=== PATIENT | male | born 1980 | race Caucasian/White ===

== ENCOUNTER → 2019-09-29 07:13 | Outpatient (CLI) | payer OTHER, SELFPAY | PROVIDERS: PCP Student in an Organized Health Care Education/Training Program | DX: Z79.899 Other long term (current) drug therapy (principal) | CPT/HCPCS: 36415 ==

== ENCOUNTER 2021-11-12 06:47 | Emergency (ER) | payer OTHER, SELFPAY ==
[2021-11-12 06:48] VITALS: BP 136/70; PULSE 76; RESP 16; TEMP 37.1; O2SAT 98; BMI 23.7
[2021-11-12 06:53] VITALS: BP 136/70; PULSE 76; RESP 18; TEMP 37.1; O2SAT 96
--- NOTE | 2021-11-12 07:04 | EKG12_ITS ---
Test Reason : Blood Pressure : / mmHG Vent. Rate : 076 BPM Atrial Rate : 076 BPM P-R Int : 126 ms QRS Dur : 102 ms QT Int : 350 ms P-R-T Axes : 060 073 -28 degrees QTc Int : 393 ms Normal sinus rhythm Nonspecific T wave abnormality Abnormal ECG Confirmed by CALIXTO WEBBER, ANDREA ([id number]), supervising editor news reel JULIUS GRIDER ([id number]) on 11/14/2021 8:13:05 AM Referred By: Confirmed By:ANDREA DE LUNA MD
--- NOTE | 2021-11-12 07:08 | EX.ED.DYSGE1 ---
HPI History of Present Illness Chief Complaint: General Illness Narrative Narrative: This is a 41-year-old male presenting with right upper back pain. He states he developed a fever last night which was improving with Tylenol and ibuprofen however the fever keeps returning. He states that the pain is sharp and does not radiate. He denies cough, shortness of breath. He does have chills and body aches. He states that he has had some nausea but has not vomited. He had a couple episodes of diarrhea without black or bloody stools. Denies any urinary complaints. He does not express to me that he is having any abdominal pain. Patient has a history of Fabry's disease. He sees a service parts coordinator at [facility] for this. He takes a medicine called Vipin for this. He states he also has a history of non-Hodgkin's lymphoma which has been in remission for about [address] Glynn for this. PFSH PFSH Home Medications bupropion HCl 300 mg 24 hr tablet, extended release (Wellbutrin XL) mg PO 11/12/21 [History Last Taken Unknown] carbamazepine 200 mg tablet 1 tab BID 11/12/21 [History Last Taken Unknown] dextroamphetamine-amphetamine 10 mg tablet (Adderall) 10 mg PO DAILY 11/12/21 [History Last Taken Unknown] gabapentin 300 mg tablet 300 mg PO BID 11/12/21 [History Last Taken Unknown] hydrocodone-acetaminophen 5-325mg 5mg-325mg 1 tab PO Q6H PRN pain 3 days #10 tabs 11/12/21 [Rx Last Taken Unknown] migalastat 123 mg capsule (Galafold) 1 cap PO QODAY 11/12/21 [History Last Taken Unknown] ondansetron 4 mg disintegrating tablet 4 mg PO Q8H PRN nausea and vomiting #10 tabs 11/12/21 [Rx Last Taken Unknown] rosuvastatin 10 mg tablet (Crestor) 10 mg PO DAILY 11/12/21 [History Last Taken Unknown] Allergy/AdvReac Type Severity Reaction Status Date / Time No Known Allergies Allergy Verified 11/12/21 06:53 Social History Smoking Status: Never smoker ROS ROS ED Constitutional Constitutional ED: Reports chills and fever(s); Denies sweats Eyes Eyes: Denies change in vision ENT ENT ED: Denies rhinorrhea or sore throat Cardiovascular Cardiovascular: Reports other Details: Right posterior rib pain ; Denies chest pain or palpitations Respiratory/Chest Respiratory/Chest: Denies cough, dyspnea or dyspnea on exertion Gastrointestinal Gastrointestinal: Reports diarrhea and nausea; Denies abdominal pain Genitourinary Genitourinary ED: Denies dysuria or hematuria Musculoskeletal Musculoskeletal: Reports other Details: Right posterior flank pain ; Denies arthralgias Integumentary Denies abscess or Abrasions Neurologic Neurologic: Reports headache(s); Denies paresthesias Psychiatric Psychiatric: Denies anxiety or depression EXAM Physical Exam Const Vital Signs: 11/12/21 06:48 11/12/21 07:29 11/12/21 06:53 Temperature 98.8 F 98.8 F Temperature Source Temporal Temporal Pulse Rate 76 76 Respiratory Rate 16 18 Respiratory Effort Normal Non-Labored Respiratory Pattern Normal Blood Pressure 136/70 H 136/70 H Blood Pressure Mean 92 92 Pulse Ox 98 96 Oxygen Delivery Method Room Air Positive well nourished General Appearance ED: NAD; Negative for pallor HEENT Reports moist mucous membranes Eyes PERRL and EOMs intact bilaterally General Eye ED: Negative for pale conjunctiva or scleral icterus Neck no lymphadenopathy Chest Wall Chest Narrative: Tenderness to palpation over the right posterior ribs. No crepitance, deformity, bruising. Equal symmetric breath sounds and chest wall rise. Resp normal respiratory effort and clear to auscultation bilaterally Cardio regular rate and regular rhythm GI normal to inspection, nondistended, normoactive bowel sounds, non-tender and non-distended Back/Spine General Back: CVA tenderness right Cervical Spine: Negative for cervical spine tenderness Thoracic Spine / Upper Back: Negative for thoracic spinal tenderness Lumbar Spine / Lower Back: Negative for lumbar spinal tenderness Extremity normal to inspection Neuro oriented x3 and CN's II-XII intact bilaterally Sensorium / Orientation: alert Motor Exam: strength 5/5 throughout Psych mental status grossly normal Skin no wounds General Skin Exam: Negative for jaundice or pallor MDM MDM MDM Narrative Medical decision making narrative: Patient presenting with fever, nausea, diarrhea and right-sided flank pain. He has also had fever. On examination he does appear to have CVA tenderness however the pain also appears to be in his lower ribs. No obvious findings on exam and his lungs are clear to auscultation. Blood work is obtained and the patient does not have a leukocytosis. Hemoglobin is stable. Patient noted to be lymphopenic. Renal function and electrolytes normal. LFTs within normal limits. Lipase is negative. EKG was performed and on my interpretation this is a normal sinus rhythm with a ventricular rate of 76 bpm with T wave inversions noted in leads II, 3, aVF, V5, V6. There is no ST elevations. No comparison EKG. The patient did have 2 high-sensitivity troponins drawn and they are both 14. There is no significant interval change. Chest x-ray on my interpretation shows no acute cardiopulmonary process and the radiologist does agree. The patient did have an elevated D-dimer and a CTA of his chest was negative for PE or dissection. There is also no infiltrate noted. Patient had a small amount of occult blood in his urine and CT of the abdomen pelvis without contrast notes no kidney stones or other acute pathology. Patient's rapid influenza was negative. PCR testing was negative for COVID. At this point I think from a cardiac standpoint the patient is stable to be discharged home. He is not have any respiratory complaints and I did not find anything on his chest x-ray or CTA. He still continues to have flank pain. He request something for pain for home and he is given a short supply of [place] and some Zofran. I suspect he has something viral and has had a very thorough work-up. He is amenable to discharge home and will follow up with his PCP to ensure resolution. Impression: 1. Viral syndrome 2. Atypical chest pain 3. Right flank pain 4. Febrile illness Lab Data Labs: Laboratory Results - last 24 hr 11/12/21 11/12/21 11/12/21 06:55 06:55 06:55 WBC 9.2 RBC 4.61 Hgb 14.1 Hct 41.0 MCV 88.9 MCH 30.6 MCHC 34.4 RDW Std Deviation 40.8 RDW Coeff of Kian 12.5 Plt Count 175 MPV 10.5 Immature Gran % (Auto) 0.300 Neut % (Auto) 86.1 H Lymph % (Auto) 4.4 L [place] % (Auto) 8.9 Eos % (Auto) 0.1 Baso % (Auto) 0.2 Absolute Neuts (auto) 7.9 H Absolute Lymphs (auto) 0.40 L Nucleated RBC % 0 D-Dimer Quant (PE/DVT) 0.69 H* Sodium 136 Potassium 4.4 Chloride 105 Carbon Dioxide 23.0 Anion Gap 8 BUN 19 H Creatinine 1.09 Estim Creat Clear Calc 99.77 Est GFR (MDRD) Af Amer 95 Est GFR (MDRD) Non-Af 79 BUN/Creatinine Ratio 17.4 Glucose 107 H Calcium 8.6 Total Bilirubin 0.40 AST 29 ALT 34 Alkaline Phosphatase 82 Troponin I High Sens 14 Total Protein 7.3 Albumin 3.8 Globulin 3.5 Albumin/Globulin Ratio 1.1 Lipase 63 L Urine Color Urine Clarity Urine pH Ur Specific [place] Urine Protein Urine Glucose (UA) Urine Ketones Urine Occult Blood Urine Nitrite Urine Bilirubin Urine Urobilinogen Ur Leukocyte Esterase Urine RBC Urine WBC Ur Squamous Epith Cells Urine Bacteria Urine Mucus COVID-19 ([facility]) 11/12/21 11/12/21 11/12/21 07:11 08:00 09:40 WBC RBC Hgb Hct MCV MCH MCHC RDW Std Deviation RDW Coeff of Kian Plt Count MPV Immature Gran % (Auto) Neut % (Auto) Lymph % (Auto) [place] % (Auto) Eos % (Auto) Baso % (Auto) Absolute Neuts (auto) Absolute Lymphs (auto) Nucleated RBC % D-Dimer Quant (PE/DVT) Sodium Potassium Chloride Carbon Dioxide Anion Gap BUN Creatinine Estim Creat Clear Calc Est GFR (MDRD) Af Amer Est GFR (MDRD) Non-Af BUN/Creatinine Ratio Glucose Calcium Total Bilirubin AST ALT Alkaline Phosphatase Troponin I High Sens 14 Total Protein Albumin Globulin Albumin/Globulin Ratio Lipase Urine Color Yellow Urine Clarity Clear Urine pH 5.0 Ur Specific [place] 1.015 Urine Protein 15 H Urine Glucose (UA) Normal Urine Ketones Negative Urine Occult Blood 10 H Urine Nitrite Negative Urine Bilirubin Negative Urine Urobilinogen Normal Ur Leukocyte Esterase Negative Urine RBC 0 SEEN Urine WBC 0 SEEN Ur Squamous Epith Cells 0 SEEN Urine Bacteria 0 SEEN Urine Mucus 0 SEEN COVID-19 ([facility]) Not Detected Radiography Diagnostic Testing: Clinical Impression(s) from Imaging Studies Chest X-Ray 11/12/21 07:42 IMPRESSION: No active disease. Electronically Signed: Tex Schaffer MD at 8:05 EDT , Abdomen/Pelvis CT 11/12/21 08:26 IMPRESSION: Normal unenhanced CT of the abdomen and pelvis. Electronically Signed: Tex Schaffer MD at 9:13 EDT , Chest CTA 11/12/21 08:26 IMPRESSION: Normal CTA chest examination, without a demonstrated pulmonary embolism or arterial dissection. Electronically Signed: Tex Schaffer MD at 9:18 EDT , Discharge Plan Triage Chief Complaint: General Illness Other Complaint: Back ED Provider: Tyshawn Kimble Dx/Rx/DC Orders Instructions: ED Flank Pain, Uncertain Cause, ED Viral Syndrome (Adult) Prescriptions: New hydrocodone-acetaminophen 5-325 mg tablet 1 tab PO Q6H PRN (Reason: pain) 3 Days Qty: 10 0RF ondansetron 4 mg tablet,disintegrating 4 mg PO Q8H PRN (Reason: nausea and vomiting) Qty: 10 0RF No Action dextroamphetamine-amphetamine [Adderall] 10 mg Tablet 10 mg PO DAILY carbamazepine 200 mg tablet 1 tab BID rosuvastatin [Crestor] 10 mg Tablet 10 mg PO DAILY Rx Instructions: unsure of dose bupropion HCl [Wellbutrin XL] 300 mg Tablet Extended Release 24 Hr PO gabapentin 300 mg Tablet 300 mg PO BID [place] 123 mg capsule 1 cap PO QODAY Primary Care Provider: Iggy Cardoza Referrals: Iggy Cardoza DO [Primary Care Provider] - Disposition Disposition: Home, Self Care
[2021-11-12] MEDS: Morphine 4 MG/ML Syringe IV (07:16)
[2021-11-12] MEDS: 0.9% Normal Saline 1,000 ML 1000 ML IV (07:16)
[2021-11-12] MEDS: Ondansetron 4 MG/2 ML Vial IV (07:16)
[2021-11-12 07:35] LABS: Absolute Neutrophil Count 7.9 X10^3/uL (2.0-7.7); Basophil# 0.02 X10^3/uL; Basophil% 0.2 % (0-1); Eosinophil# 0.01 X10^3/uL; Eosinophils% 0.1 % (0-5); Hemoglobin 14.1 g/dL (13.0-16.5); Lymphocyte % 4.4 % (19-41); Mean Corp Hgb Conc 34.4 g/dL (32-36); Mean Corpuscular Hgb 30.6 pg (27.0-32.0); Mean Corpuscular Volume 88.9 fL (80-94); Mean Platelet Vol. 10.5 fl (6.2-12.0); Monocyte# 0.82 X10^3/uL; Monocyte% 8.9 % (0-10); NRBC Flagged by Analyzer 0 % (0-5); Neutrophil # 7.89 X10^3/uL (2.7-7.7); Neutrophil % 86.1 % (47-70); POSITIVE DIFFERENTIAL YES; Platelet Count 175 K/mm3 (150-450); RBC Distribution Width CV 12.5 % (11.6-14.6); RBC Distribution Width SD 40.8 fl (35.1-43.9); Red Blood Count 4.61 M/mm3 (4.6-6.2); White Blood Count 9.2 K/mm3 (4.4-11.0)
[2021-11-12 07:39] LABS: Differential Indicated SCAN CRITERIA MET
--- NOTE | 2021-11-12 07:42 | RAD_ITS ---
STUDY: X-RAY CHEST REASON FOR EXAM: Male, 41 years old. chest pain TECHNIQUE: Single AP portable view of the chest. COMPARISON: None. FINDINGS: Left subclavian chest port. The lungs are clear and expanded. There is no demonstrated pleural abnormality. Normal size heart. Normal mediastinum and heather. Normal visualized pulmonary arteries. Normal visualized aortic arch and descending thoracic aorta. Normal visualized thoracic spine. Normal visualized ribs, clavicles, and shoulders. There is no demonstrated abnormality of the visualized soft tissue structures of the upper abdomen. RAD/Chest 1 View (Portable) IMPRESSION: No active disease. Electronically Signed: Tex Schaffer MD at 8:05 EDT ,
[2021-11-12 07:54] LABS: ALB/GLOB Ratio 1.1 RATIO (0.9-2.4); AST(SGOT) 29 U/L (15-37); Alanine Aminotransfer ALT/SGPT 34 U/L (16-61); Albumin, Serum 3.8 g/dL (3.2-5.0); Alkaline Phosphatase 82 U/L (45-117); Anion Gap 8 (5-15); BUN 19 mg/dL (7-18); BUN/Creat Ratio 17.4 RATIO (10-20); Calcium,Total 8.6 mg/dL (8.5-10.1); Chloride 105 mmol/L (98-107); Creatinine, Serum 1.09 mg/dL (0.70-1.30); EST Glomerular Filtration Rate 79 mL/min (>60); Est Glom Filt Rate - Afr Amer 95 mL/min (>60); Estimated Creatinine Clearance 99.77 ml/min; Globulin 3.5 g/dL (2.2-4.2); Glucose 107 mg/dL (74-106); Lipase 63 U/L (73-393); Potassium 4.4 mmol/L (3.5-5.1); Protein, Total 7.3 g/dL (6.4-8.2); Sodium Level 136 mmol/L (136-145); Troponin-I HS 14 pg/mL (3.0-78.0)
[2021-11-12 08:07] LABS: D-Dimer Quantitative (DVT/PE) 0.69 FEU/ug/m (0.27-0.49)
[2021-11-12 08:08] LABS: Bacteria 0 SEEN /hpf (None Seen); Mucous, Urine 0 SEEN /hpf (<or=2+); Red Blood Cells-Urine 0 SEEN /hpf (0-5); Squamous Epithelial Cells - UA 0 SEEN /hpf (0-5); White Blood Cells 0 SEEN /hpf (0-5)
[2021-11-12 08:12] LABS: Color, Urine Yellow (Yellow); Glucose, Dipstick Normal (Normal); Ketone-Dipstick Negative (Negative); Leukocyte Esterase-Dipstick Negative /ul (Negative); Nitrite-Dipstick Negative (Negative); Occult Blood-Urine 10 /ul (Negative); Protein-Dipstick 15 mg/dl (Negative); Specific Gravity, Urine 1.015 (1.002-1.030); Urine Bilirubin Dipstick Negative (Negative); Urine Clarity Clear (Clear); Urine Urobilinogen Normal (Normal)
--- NOTE | 2021-11-12 08:26 | CT_ITS ---
STUDY: CT ABDOMEN AND PELVIS WITHOUT CONTRAST REASON FOR EXAM: Male, 41 years old. Left flank pain RADIATION DOSAGE (If Supplied By Facility): CTDIvol = ( 9.99 ) mGy, DLP = ( 618.05 ) mGycm TECHNIQUE: Transaxial images were obtained from the dome of the diaphragm to the symphysis pubis without oral contrast, and without intravenous contrast. Sagittal and coronal images were reconstructed. Individualized dose optimization techniques were used for this CT. COMPARISON: None. FINDINGS: The visualized lung bases are unremarkable. The visualized portions of the heart are within normal limits. Normal liver. Normal gallbladder and extrahepatic biliary system. Normal spleen. Normal pancreas. Normal bilateral adrenal glands. Normal right kidney. Normal left kidney. Normal visualized stomach. Normal small intestine. Normal colon. There is non-visualization of the appendix. Normal abdominal aorta. Normal inferior vena cava. Normal retroperitoneum. Normal urinary bladder. Normal abdominal wall. Normal osseous structures. CT/Abdomen/Pelvis without Cont IMPRESSION: Normal unenhanced CT of the abdomen and pelvis. Electronically Signed: Tex Schaffer MD at 9:13 EDT ,
--- NOTE | 2021-11-12 08:26 | CT_ITS ---
STUDY: CTA CHEST REASON FOR EXAM: Male, 41 years old. rib pain RADIATION DOSAGE (If Supplied By Facility): CTDIvol = ( 9.99 ) mGy, DLP = ( 618.05 ) mGycm TECHNIQUE: The examination was performed with the intravenous administration of IV 100mL [id number]-370. Post-processing of the angiographic images was performed, with multiplanar reformation and 3D reconstruction. Individualized dose optimization techniques were used for this CT. COMPARISON: None. FINDINGS: Normal enhancement of the main pulmonary artery and right and left pulmonary arteries. Normal enhancement of the bilateral peripheral pulmonary arteries. There is no demonstrated pulmonary embolism. Normal thoracic aorta and visualized great vessels. There is no demonstrated aortic dissection. Normal heart and pericardium. Normal mediastinum. Normal hilar regions. Normal visualized trachea and bronchi. The lungs are well expanded. Normal pulmonary parenchyma. Normal pleura. Normal chest wall structures. Normal osseous structures. Normal visualized upper abdomen. CT/CTA Chest W/WO Contrast IMPRESSION: Normal CTA chest examination, without a demonstrated pulmonary embolism or arterial dissection. Electronically Signed: Tex Schaffer MD at 9:18 EDT ,
[2021-11-12 10:02] LABS: Troponin-I HS 14 pg/mL (3.0-78.0)
[2021-11-12 11:15] VITALS: PULSE 80; RESP 17; O2SAT 98
== END 2021-11-12 11:18 | disposition home or self-care (01) ==
PROVIDERS: Emergency Provider Student in an Organized Health Care Education/Training Program; PCP Student in an Organized Health Care Education/Training Program; Visit Provider Student in an Organized Health Care Education/Training Program
DX: B34.9 Viral infection, unspecified (principal); R07.89 Other chest pain; R10.9 Unspecified abdominal pain; R50.9 Fever, unspecified; Z79.899 Other long term (current) drug therapy
CPT/HCPCS: 71045; 71275; 74176; 80053; 81001; 83690; 84484; 85025; 85379; 87635; 87804; 93005; 96374; 96375; 99283; J7030; Q9967; A4216; J2405; U0003; U0005

== ENCOUNTER 2021-11-14 07:53 | Emergency (ER) | payer OTHER, SELFPAY ==
[2021-11-14 07:54] VITALS: BP 104/63; PULSE 62; RESP 18; TEMP 36.4; O2SAT 98; BMI 23.7
--- NOTE | 2021-11-14 08:21 | EDS_ITS ---
HPI History of Present Illness Chief Complaint: General Illness Informant: patient Narrative Narrative: 41-year-old male presenting with diarrhea. Patient was seen in the ED on Friday with similar complaints but has had persistent fever and diarrhea. He has had nausea with no vomiting. He states he is unsure but may have seen a small amount of blood in his stool. He complains of diffuse abdominal cramping. He has been taking Tylenol and Advil consistently and currently does not have a fever. He denies shortness of breath or cough. He does work on a farm. Denies sick contacts. Home COVID test yesterday was negative. History of appendectomy. Prior similar symptoms: Yes Recent Illness/Hospitalization: No PFSH PFSH Home Medications bupropion HCl 300 mg 24 hr tablet, extended release (Wellbutrin XL) mg PO 11/12/21 [History Last Taken Unknown] carbamazepine 200 mg tablet 1 tab BID 11/12/21 [History Last Taken Unknown] dextroamphetamine-amphetamine 10 mg tablet (Adderall) 10 mg PO DAILY 11/12/21 [History Last Taken Unknown] gabapentin 300 mg tablet 300 mg PO BID 11/12/21 [History Last Taken Unknown] hydrocodone-acetaminophen 5-325mg 5mg-325mg 1 tab PO Q6H PRN pain 3 days #10 tabs 11/12/21 [Rx Last Taken Unknown] migalastat 123 mg capsule (Galafold) 1 cap PO QODAY 11/12/21 [History Last Taken Unknown] ondansetron 4 mg disintegrating tablet 4 mg PO Q8H PRN nausea and vomiting #10 tabs 11/12/21 [Rx Last Taken Unknown] rosuvastatin 10 mg tablet (Crestor) 10 mg PO DAILY 11/12/21 [History Last Taken Unknown] ciprofloxacin HCl 500 mg tablet (Cipro) 500 mg PO BID #14 tabs 11/14/21 [Rx Last Taken Unknown] Allergy/AdvReac Type Severity Reaction Status Date / Time No Known Allergies Allergy Verified 11/14/21 07:56 Social History Smoking Status: Never smoker ROS ROS ED Constitutional Constitutional ED: Reports fever(s) ENT ENT ED: Denies rhinorrhea Cardiovascular Cardiovascular: Denies chest pain Respiratory/Chest Respiratory/Chest: Denies cough or dyspnea Gastrointestinal Gastrointestinal: Reports abdominal pain, diarrhea and nausea; Denies constipation, melena or vomiting Genitourinary Genitourinary ED: Denies dysuria Musculoskeletal Musculoskeletal: Reports myalgias Integumentary Denies rash Neurologic Neurologic: Denies headache(s) Psychiatric Psychiatric: Denies suicidal ideation EXAM Physical Exam Narrative Exam Narrative: Patient is given IV fluids. Const Vital Signs: 11/14/21 07:54 11/14/21 08:42 11/14/21 11:07 Temperature 97.5 F L 98.6 F Temperature Source Temporal Oral Pulse Rate 62 56 L Respiratory Rate 18 16 Respiratory Pattern Normal Blood Pressure 104/63 104/66 Blood Pressure Mean 76 78 Pulse Ox 98 100 Oxygen Delivery Method Room Air Room Air Positive well nourished and well developed General Appearance ED: well developed HEENT Reports dry mucous membranes Mouth ED: Yes dry mucous membranes Mouth: dry mucous membranes Eyes PERRL and EOMs intact bilaterally Neck supple Neck Narrative: No meningismus Resp normal respiratory effort and clear to auscultation bilaterally Cardio regular rate and regular rhythm GI normal to inspection, nondistended, normoactive bowel sounds GI Narrative: Mild epigastric tenderness, no rebound or guarding Palpation: Negative for guarding or rebound tenderness present Back/Spine no CVA tenderness Extremity normal to inspection Neuro oriented x3 Psych mental status grossly normal Skin no rashes or lesions noted MDM MDM MDM Narrative Medical decision making narrative: Patient was given IV fluids. COVID is negative. CBC shows normal white count, normal hemoglobin. Chemistries are unremarkable. Lipase is normal. Urinalysis unremarkable. Stool studies were sent and are pending. Positive fecal white blood cells. 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 He was given prescription for Cipro. He is feeling improved on reevaluation. He is comfortable with discharge home. Advised signs and symptoms for which to return to the ED. Advised to follow-up with primary care physician. Lab Data Attestation: I reviewed the patient's lab results. Labs: Laboratory Results - last 24 hr 11/14/21 11/14/21 11/14/21 08:35 08:35 09:35 WBC 4.4 RBC 4.55 L Hgb 13.8 Hct 39.9 L MCV 87.7 MCH 30.3 MCHC 34.6 RDW Std Deviation 39.8 RDW Coeff of Kian 12.3 Plt Count 175 MPV 10.0 Immature Gran % (Auto) 0.200 Neut % (Auto) 62.6 Lymph % (Auto) 15.6 L [place] % (Auto) 20.4 H Eos % (Auto) 0.7 Baso % (Auto) 0.5 Absolute Neuts (auto) 2.7 Absolute Lymphs (auto) 0.68 L Nucleated RBC % 0 Differential Comment Sodium 139 Potassium 3.6 Chloride 107 Carbon Dioxide 26.0 Anion Gap 6 BUN 8 Creatinine 0.99 Estim Creat Clear Calc 109.85 Est GFR (MDRD) Af Amer 106 Est GFR (MDRD) Non-Af 88 BUN/Creatinine Ratio 8.1 L Glucose 101 Calcium 8.6 Total Bilirubin 0.30 AST 24 ALT 32 Alkaline Phosphatase 64 Total Protein 6.9 Albumin 3.3 Globulin 3.6 Albumin/Globulin Ratio 0.9 Lipase 46 L Urine Color Yellow Urine Clarity Sl. Cloudy Urine pH 6.0 Ur Specific [place] 1.015 Urine Protein 30 H Urine Glucose (UA) Normal Urine Ketones Negative Urine Occult Blood 10 H Urine Nitrite Negative Urine Bilirubin Negative Urine Urobilinogen Normal Ur Leukocyte Esterase 25 H Urine RBC 0 SEEN Urine WBC 0 SEEN Ur Squamous Epith Cells 0 SEEN Urine Bacteria 0 SEEN Urine Mucus 0 SEEN Discharge Plan Triage Chief Complaint: General Illness ED Provider: Leatha Briceno Dx/Rx/DC Orders Clinical Impression: Diarrhea Instructions: ED Diarrhea, Unknown Cause Prescriptions: New ciprofloxacin HCl [Cipro] 500 mg tablet 500 mg PO BID Qty: 14 0RF No Action dextroamphetamine-amphetamine [Adderall] 10 mg Tablet 10 mg PO DAILY carbamazepine 200 mg tablet 1 tab BID rosuvastatin [Crestor] 10 mg Tablet 10 mg PO DAILY Rx Instructions: unsure of dose bupropion HCl [Wellbutrin XL] 300 mg Tablet Extended Release 24 Hr PO gabapentin 300 mg Tablet 300 mg PO BID [place] 123 mg capsule 1 cap PO QODAY hydrocodone-acetaminophen 5-325 mg tablet 1 tab PO Q6H PRN (Reason: pain) 3 Days Qty: 10 0RF ondansetron 4 mg tablet,disintegrating 4 mg PO Q8H PRN (Reason: nausea and vomiting) Qty: 10 0RF Primary Care Provider: Iggy Cardoza Referrals: Iggy Cardoza DO [Primary Care Provider] - Disposition Disposition: Home, Self Care
[2021-11-14] MEDS: 0.9% Normal Saline 1,000 ML 1000 ML IV (08:39)
[2021-11-14 08:45] LABS: Absolute Lymphocyte Count 0.68 X10^3/uL (0.83-4.51); Absolute Neutrophil Count 2.7 X10^3/uL (2.0-7.7); Basophil# 0.02 X10^3/uL; Basophil% 0.5 % (0-1); Eosinophil# 0.03 X10^3/uL; Eosinophils% 0.7 % (0-5); Hematocrit 39.9 % (40-54); Hemoglobin 13.8 g/dL (13.0-16.5); Lymphocyte # 0.68 X10^3/ul (0.83-4.51); Lymphocyte % 15.6 % (19-41); Mean Corp Hgb Conc 34.6 g/dL (32-36); Mean Corpuscular Hgb 30.3 pg (27.0-32.0); Mean Corpuscular Volume 87.7 fL (80-94); Monocyte# 0.89 X10^3/uL; Monocyte% 20.4 % (0-10); NRBC Flagged by Analyzer 0 % (0-5); Neutrophil # 2.73 X10^3/uL (2.7-7.7); Neutrophil % 62.6 % (47-70); POSITIVE MORPHOLOGY YES; Platelet Count 175 K/mm3 (150-450); RBC Distribution Width CV 12.3 % (11.6-14.6); RBC Distribution Width SD 39.8 fl (35.1-43.9); Red Blood Count 4.55 M/mm3 (4.6-6.2); White Blood Count 4.4 K/mm3 (4.4-11.0)
[2021-11-14 08:48] LABS: Differential Indicated SCAN CRITERIA MET
[2021-11-14 09:02] LABS: ALB/GLOB Ratio 0.9 RATIO (0.9-2.4); AST(SGOT) 24 U/L (15-37); Alanine Aminotransfer ALT/SGPT 32 U/L (16-61); Albumin, Serum 3.3 g/dL (3.2-5.0); Alkaline Phosphatase 64 U/L (45-117); Anion Gap 6 (5-15); BUN 8 mg/dL (7-18); BUN/Creat Ratio 8.1 RATIO (10-20); Calcium,Total 8.6 mg/dL (8.5-10.1); Chloride 107 mmol/L (98-107); Creatinine, Serum 0.99 mg/dL (0.70-1.30); EST Glomerular Filtration Rate 88 mL/min (>60); Est Glom Filt Rate - Afr Amer 106 mL/min (>60); Estimated Creatinine Clearance 109.85 ml/min; Globulin 3.6 g/dL (2.2-4.2); Glucose 101 mg/dL (74-106); Lipase 46 U/L (73-393); Potassium 3.6 mmol/L (3.5-5.1); Protein, Total 6.9 g/dL (6.4-8.2); Sodium Level 139 mmol/L (136-145)
[2021-11-14 09:43] LABS: Bacteria 0 SEEN /hpf (None Seen); Mucous, Urine 0 SEEN /hpf (<or=2+); Red Blood Cells-Urine 0 SEEN /hpf (0-5); Squamous Epithelial Cells - UA 0 SEEN /hpf (0-5); White Blood Cells 0 SEEN /hpf (0-5)
[2021-11-14 09:45] LABS: Color, Urine Yellow (Yellow); Glucose, Dipstick Normal (Normal); Ketone-Dipstick Negative (Negative); Leukocyte Esterase-Dipstick 25 /ul (Negative); Nitrite-Dipstick Negative (Negative); Occult Blood-Urine 10 /ul (Negative); Protein-Dipstick 30 mg/dl (Negative); Specific Gravity, Urine 1.015 (1.002-1.030); Urine Bilirubin Dipstick Negative (Negative); Urine Clarity Sl. Cloudy (Clear); Urine Urobilinogen Normal (Normal)
[2021-11-14 11:07] VITALS: BP 104/66; PULSE 56; RESP 16; TEMP 37; O2SAT 100
[2021-11-14 12:21] VITALS: BP 106/66; PULSE 53; RESP 18; O2SAT 99
[2021-11-14] MEDS: Ciprofloxacin 500 MG Tablet PO (12:22)
--- NOTE | 2021-11-14 16:58 | ED.RN ---
THIS RN CONTACTED PT REGARDING POSITIVE STOOL RESULTS. PT VERBALIZES UNDERSTANDING OF CONTINUING TO TAKE CIPRO THAT WAS PRESCRIBED.
[2021-11-15 15:09] LABS: Giardia Lamblia, Stool EIA Negative (Negative)
== END 2021-11-14 12:30 | disposition home or self-care (01) ==
PROVIDERS: Emergency Provider Emergency Medicine; PCP Student in an Organized Health Care Education/Training Program; Visit Provider Emergency Medicine
DX: R19.7 Diarrhea, unspecified (principal)
CPT/HCPCS: 80053; 81001; 83630; 83690; 85025; 87329; 87493; 87506; 87811; 96360; 96361; 99284; J7030

== ENCOUNTER 2025-04-15 13:16 | Emergency (ER) | payer OTHER, SELFPAY ==
[2025-04-15 13:18] VITALS: BP 120/78; PULSE 64; RESP 16; TEMP 36.9; O2SAT 99; BMI 24.9
[2025-04-15 15:14] VITALS: BP 116/72; PULSE 64; RESP 16; TEMP 36.9; O2SAT 99
--- NOTE | 2025-04-15 16:08 | EX.ED.DYSGE1 ---
HPI History of Present Illness Chief Complaint: Fever Narrative Narrative: Pt is a 44-year-old male who is presenting to the ER today with chief complaint of 8 days of myalgia, arthralgia, headaches, fever intermittently. Patient just recently travel to [place] with his and children and came back on Friday. Patient is a huggins. Patient saw PCP this past Friday. Patient had outpatient blood work that all was rather negative, also Lyme disease titers. Patient was started on doxycycline. Patient been having intermittent headaches with some mild photophobia. Patient is having mild neck pain. Patient feels that his neck pain is slightly improving. Patient been taking Advil every 6 hours. Patient has Irene's disease. Patient saw PCP a few days ago. Patient came into the ER because patient and are concerned that he still having fever and flulike symptoms and has never been sick this long before. Patient looks very well. No current headache or neck pain in the ER this morning. chief concern is possible meningitis after doing some research on the Internet. This was discussed as possible etiology, patient signs and symptoms, and all the lab test that patient has already had done with the patient and . Patient is not showing any overt signs or symptoms of any type of viral or bacterial meningitis. Patient and agree. REVIEW OF SYSTEMS: Unless otherwise stated in this report the patient's positive and negative responses for review of systems for constitutional, eyes, ENT, cardiovascular, respiratory, gastrointestinal, neurological, , musculoskeletal, and integument systems and related systems to the presenting problem are either stated in the history of present illness or were not pertinent or were negative for the symptoms and/or complaints related to the presenting medical problem. Nurse's notes and vital signs reviewed. The patient is not hypoxic. Vital signs reviewed and patient is not hypoxic. General: The patient appears well and in no apparent distress. Patient is resting comfortably on cart. Not toxic, lethargic, or listless. Skin: Warm, dry, no pallor noted. T minimal tenderness to palpation to left paracervical soft tissue. He has no meningeal signs or symptoms. Full range of motion of cervical spine with minimal pain in the left lower paracervical area, no rash to that area, no swelling. There is no rash to that area, no meningeal signs or symptoms, no nuchal rigidity. Patient looks well. Head: Normocephalic, atraumatic; no scalp hematoma, no rashes noted. Eye: Normal conjunctiva, no drainage, EOMI. PERRL. Ears, Nose, Mouth, and Throat: oral mucosa is moist. Nares patent. Mouth without vesicles. Cardiovascular: Regular Rate and Rhythm, no murmurs, gallops, or rubs Respiratory: Patient is in no distress, no accessory muscle use, lungs are clear to auscultation, no wheezing, rales or rhonchi Back: non-tender, no CVA tenderness bilaterally to percussion. NO CTLS midline or paraspinal tenderness to palpation. GI: Soft, no tenderness to palpation, no masses appreciated. No rebound, guarding, or rigidity noted. No pulsatile mass. Musculoskeletal: The patient has full range of motion of all extremities and joints with no difficulty. Patient has no motor, no sensory deficits. Neurological: A&O x4, normal speech, no focal neurological deficits. Psychiatric: [facility] Medical History (Updated 04/15/25 @ 15:[address] Waylon Ferguson DO) COVID-19 Home Medications ?Medication ?Instructions ?Recorded ?Last Taken ?Type bupropion HCl 300 mg 24 hr tablet, mg PO 11/12/21 Unknown History extended release (Wellbutrin XL) carbamazepine 200 mg tablet 1 tab BID 11/12/21 Unknown History dextroamphetamine-amphetamine 10 10 mg PO DAILY 11/12/21 Unknown History mg tablet (Adderall) gabapentin 300 mg tablet 300 mg PO BID 11/12/21 Unknown History hydrocodone-acetaminophen 5-325mg 1 tab PO Q6H PRN pain 3 days #10 11/12/21 Unknown Rx 5mg-325mg tabs migalastat 123 mg capsule 1 cap PO QODAY 11/12/21 Unknown History (Galafold) ondansetron 4 mg disintegrating 4 mg PO Q8H PRN nausea and 11/12/21 Unknown Rx tablet vomiting #10 tabs rosuvastatin 10 mg tablet (Crestor) 10 mg PO DAILY 11/12/21 Unknown History ciprofloxacin HCl 500 mg tablet 500 mg PO BID #14 tabs 11/14/21 Unknown Rx (Cipro) Allergy/AdvReac Type Severity Reaction Status Date / Time No Known Allergies Allergy Verified 04/15/25 13:19 Social History Smoking Status: Never smoker EXAM Physical Exam Const Vital Signs: 04/15/25 13:18 04/15/25 14:32 04/15/25 15:14 Temperature 98.4 F 98.4 F Temperature Source Oral Pulse Rate 64 64 Respiratory Rate 16 16 Respiratory Effort Normal Non-Labored Respiratory Pattern Normal Blood Pressure 120/78 116/72 Blood Pressure Mean 92 86 Pulse Ox 99 99 Oxygen Delivery Method Room Air MDM MDM MDM Narrative Medical decision making narrative: I have discussed the CBC, CMP, influenza COVID, Lyme titers, and all the tests were ordered as an outpatient by patient's PCP. We discussed the potential of viral or bacterial meningitis. Signs and symptoms of each were discussed. We discussed patient's slightly elevated monocytes on blood test done 2 days ago. We discussed using doxycycline and what the effectiveness of doxycycline could or could not be. Patient looks well. Patient's symptoms are slightly getting better. Patient has no acute indication for CT of the head. Patient risks and benefits of performing spinal tap and lumbar puncture were discussed for meningitis, I do not believe this is indicated. Patient does not want to have a lumbar puncture, both patient and agree that is not necessary. Since patient does have lab test done 2 days ago they are all essentially negative with shared decision making, patient, and myself agree there is no acute indication to do additional testing. Education of flulike symptoms and viruses were done. Education on continuing Advil was discussed. We discussed favors disease. Patient will follow-up with PCP if no improvement by Friday or Friday.; We discussed for 5 minutes traveling to [place] and patient's experiences along with mine with travel to [place]. Patient and are very comfortable with no testing and discharge, they felt less anxious and have more peace of mind and had a lot of questions answered by myself they were concerned about, especially patient's and potential diagnosis of meningitis. Patient looks extremely well, has no meningeal signs or symptoms, especially being sick for 8 days. Patient has no anterior posterior cervical lymphadenopathy. No acute signs of mono. 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 Patient's lymphoma is in remission. Patient had Tc-Tompkins titers at that time. Discharge Plan Triage Chief Complaint: Fever ED Provider: Waylon Ferguson Dx/Rx/DC Orders Clinical Impression: Febrile illness Instructions: Bacterial Meningitis, Neck Clock (Flexibility), ED FUO Adult, ED Viral Meningitis Prescriptions: No Action dextroamphetamine-amphetamine [Adderall] 10 mg Tablet 10 mg PO DAILY carbamazepine 200 mg tablet 1 tab BID rosuvastatin [Crestor] 10 mg Tablet 10 mg PO DAILY Rx Instructions: unsure of dose bupropion HCl [Wellbutrin XL] 300 mg Tablet Extended Release 24 Hr PO gabapentin 300 mg Tablet 300 mg PO BID Galafold 123 mg capsule 1 cap PO QODAY hydrocodone-acetaminophen 5-325 mg tablet 1 tab PO Q6H PRN (Reason: pain) 3 Days Qty: 10 0RF ondansetron 4 mg tablet,disintegrating 4 mg PO Q8H PRN (Reason: nausea and vomiting) Qty: 10 0RF ciprofloxacin HCl [Cipro] 500 mg tablet 500 mg PO BID Qty: 14 0RF Primary Care Provider: Iggy Cardoza Referrals: Iggy Cardoza DO [Primary Care Provider, Medical] Activity Restrictions/Additional Instructions: Continue increase fluids at home, Gatorade, Powerade, electrolyte drinks, half a gallon to a gallon throughout the day to help with hydration, help with headache. If symptoms are not improving by next midweek, follow back up with PCP for further recommendations. Take antibiotic as prescribed Education on viral and bacterial meningitis were given to you for educational purposes only. He did not have any signs or symptoms of meningitis at this time as discussed. This is for educational purposes only since this was one of your chief concerns today. Return back to the ER for any other acute concerns, signs or symptoms. For cervical pain, use ice, cervical stretching 3-3 times a day. Do not use heat. Print Language: Danish Disposition Disposition: Home, Self Care Discharge Date/Time: 04/15/25 15:15
== END 2025-04-15 15:15 | disposition home or self-care (01) ==
PROVIDERS: Emergency Provider Emergency Medicine; PCP Student in an Organized Health Care Education/Training Program; Visit Provider Emergency Medicine
DX: R50.9 Fever, unspecified (principal); C85.9A Non-Hodgkin lymphoma, unspecified, in remission
CPT/HCPCS: 99282